=== PATIENT | female | born 1985 | race Caucasian/White ===

== ENCOUNTER 2018-07-28 06:48 | Inpatient (IN) | payer BC ==
[~2018-07-28] VITALS: Ht 154.9 cm; Wt 88.6 kg
[~2018-07-28 06:48] MED LIST: NO HOME MEDICATIONS
[2018-08-04] VITALS (25 sets, daily range): BP systolic 120–180; BP diastolic 63–102; PULSE 75–141; TEMP 97.9–98.4
--- NOTE | 2018-08-04 07:20 | NUR ---
Patient arrives ambulatory with spouse for scheduled induction of labor. Patient denies contractions, ROM or vaginal bleeding. Reports normal movement. Changes into gown, EFM explained and placed. VS obtained, BP elevated. Patient denies headache, visual changes, or RUQ pain. Will notify physician. Plan of care reviewed, patient denies questions. 0740- IV started in LW, labs obtained. LR infusing per protocol. Assessment completed. Consents explained and signed. Patient denies questions. 0800- Dr. Jackson on unit, notified of maternal vitals. Physician at bedside to assess patient. Reviewed AROM, patient agrees. 0805- SVE per provider /. AROM by Dr. Jackson for moderate amount of clear fluid noted. Pericare given. Patient updated on plan of care. Orders to start Pitocin induction. Reviewed with patient, patient denies questions. Pitocin started at 2 mU per protocol. Will monitor per protocol. See physician notification.
[2018-08-04] MEDS ORDERED: PRENATAL (07:35)
[2018-08-04] MEDS ORDERED: ZYRTEC 10MG10 MG PO (07:35)
[2018-08-04 08:09] LABS: BASO # 0.1 (0.0-0.2); BASO % 0.5 % (0.0-2.0); EOS # 0.1 (0.0-0.7); EOS % 0.8 % (0-4.0); GRAN # 9.2 (1.4-6.5); GRAN % 71.2 % (42.2-75.2); HEMATOCRIT 34.6 % (37.0-47.0); HEMOGLOBIN 11.6 g/dl (12.5-16.0); LYMPH # 2.6 (1.2-3.4); LYMPH % 19.8 % (20.0-51.0); MEAN CELL VOLUME 89 fl (80.0-100.0); MEAN CORPUSCULAR HEMOGLOBIN 30 pg (27.0-31.0); MEAN CORPUSCULAR HGB CONC 34 g/dl (33.0-37.0); MEAN PLATELET VOLUME 11.6 fl (7.4-10.4); MONO # 0.9 (0.1-0.6); MONO % 7.2 % (1.7-9.3); PLATELET COUNT 211 K/mm3 (130-400); REDCELL DISTRIBUTION WIDTH-CV 14.7 % (11.5-14.5)
[2018-08-04 09:06] LABS: ALBUMIN 3.4 gm/dL (3.5-5.0); BILIRUBIN,TOTAL 0.4 mg/dL (0.0-1.0); CALCIUM 9.1 mg/dL (8.4-10.2); CREATININE, serum 0.67 mg/dL (0.52-1.25); POTASSIUM 3.7 mmol/L (3.4-5.0); TOTAL PROTEIN 6.7 gm/dL (6.4-8.2)
--- NOTE | 2018-08-04 10:00 | NUR ---
1000- Patient requesting epidural. Shahram Capps CRNA notified. LR bolus infusing. 1020- Patient reports increased pressure. SVE 5/90/0. Patient assisted to sit on edge of bed for epidural. Difficulty tracing FHR due to maternal position and movement. Pitocin infusion paused at this time due to inability to trace FHR. 1025- Shahram Capps MEDICAL EQUIPMENT REPAIRER at bedside. 1036- Single shot via epidural per Shahram Capps CRNA. Patient tolerates well, no adverse reactions noted. See anesthesia record. 1045- Patient repositioned WL following epidural. Safety and plan of care reviewed.
--- NOTE | 2018-08-04 10:15 | NUR ---
Dr. Jackson at bedside. SVE per provider 2. Pericare given, patient assisted to footplates. 1120- Patient begins to push with contractions with physician at bedside.
--- NOTE | 2018-08-04 10:45 | NUR ---
Patient reports increased pressure. SVE 8-9/100/+1. Dr. Jackson updated on patient assessment, SVE, FHR strip. No new orders. Patient encouraged to notify RN with increased pressure.
--- NOTE | 2018-08-04 10:55 | NUR ---
Patient reports urge to push. SVE AL/+1. Dr. Jackson notified, in transit for impending delivery. RN remains at bedside.
--- NOTE | 2018-08-04 11:50 | NUR ---
1145- Patient continues to push with contractions with physician at bedside. Nursery RN at bedside. MLE performed by physician. 1149- Spontaneous delivery of head noted. Shoulder dytocia noted by physician lasting approximately 30 seconds. See physician documentation. Patient assisted to [employer], following repositioning and physician maneuvers body delivered at 1150. to mother's abdomen, care of to Avel Drake RN. Apgars 8/9/9. Cord clamped and cut by father. Cord blood gasses obtained and sent to lab. 1156- Spont. delivery of placenta. Pitocin bolus started at 333 ml/hr/protocol. Fundal massage by RN, firm and at umbilicus. Second degree perineal laceration and MLE repaired, patient tolerates well. Vaginal bleeding WNL. Pericare given and ice pack applied. Patient updated on plan of care and safety.
[2018-08-05] VITALS: BP 126/80; PULSE 77; TEMP 98.3
[2018-08-05 04:50] VITALS: BP 111/54; PULSE 88; TEMP 98.1
[2018-08-05 08:59] VITALS: BP 129/82; PULSE 89; TEMP 98.1
[2018-08-05] MEDS ORDERED: IBU600 MG PO (10:25)
--- NOTE | 2018-08-05 13:07 | NUR ---
Missile Tracking Technician offered congrats to patient and family in room.
== END 2018-08-05 15:37 | disposition home or self-care (01) | DRG 807 ==
LOC: LDR 08-04 06:04 → OB 08-04 14:20
PROVIDERS: ADMIT Obstetrics & Gynecology
PROC: 10E0XZZ Delivery of Products of Conception, External Approach (ICD-10-PCS; principal; 2018-08-04)
PROC: 0W8NXZZ Division of Female Perineum, External Approach (ICD-10-PCS; 2018-08-04)
PROC: 10907ZC Drainage of Amniotic Fluid, Therapeutic from Products of Conception, Via Natural or Artificial Opening (ICD-10-PCS; 2018-08-04)
PROC: 3E033VJ Introduction of Other Hormone into Peripheral Vein, Percutaneous Approach (ICD-10-PCS; 2018-08-04)
DX: O13.4 Gestational [pregnancy-induced] hypertension without significant proteinuria, complicating childbirth (principal); Z37.0 Single live birth; Z3A.40 40 weeks gestation of pregnancy; O66.0 Obstructed labor due to shoulder dystocia
CPT/HCPCS: J2590; J2795; J7120